=== PATIENT | male | born 1965 | race African-American/Black ===

== ENCOUNTER 2018-07-31 08:31 | Inpatient (IN) | payer MEDICAID ==
[~2018-07-31] VITALS: Ht 193 cm; Wt 83.9 kg
[2018-07-31] VITALS (12 sets, daily range): BP systolic 142–207; BP diastolic 97–154
[2018-07-31 09:44] LABS: CHLORIDE 85 mEq/L (98-107)
[2018-07-31 10:07] LABS: HEMATOCRIT. 22.9 % (42.0-52.0); HEMOGLOBIN. 7.8 g/dL (14.0-18.0); MEAN CORPUSCULAR HEMOGLOBIN 26.9 pg (28.0-32.0); MEAN CORPUSCULAR VOLUME 78.8 fL (80.0-94.0); MEAN PLATELET VOLUME 9.1 fl (7.4-10.4); PLATELET 51 x1000/uL (130-400); RED BLOOD CELL COUNT 2.91 mill/uL (4.7-6.1); RED CELL DISTRIBUTION WIDTH 15.9 % (11.6-14.6)
[2018-07-31] MEDS ORDERED: ALBUTEROL (0.083%) 2.5MG/3ML NEB HHN ONE (10:15)
[2018-07-31] MEDS ORDERED: CALCIUM CHLORIDE 1GM/10ML SYR IV ONE ×2 (10:15→20:00)
[2018-07-31] MEDS ORDERED: INSULIN REGULAR (HUMULIN R) 300UNITS/3ML IV ONE (10:15)
[2018-07-31] MEDS ORDERED: SODIUM BICARBONATE 8.4% 1 MEQ/ML 50ML SYR IV ONE (10:15)
[2018-07-31] MEDS ORDERED: DEXTROSE 50% WATER 50ML SYRINGE IV ONE ×2 (10:15→20:00)
[2018-07-31] MEDS ORDERED: ENOXAPARIN 80MG/0.8ML SYR SUBCUT ONE (10:15)
[2018-07-31 10:42] LABS: PLATELET ESTIMATE DECREASED
[2018-07-31] MEDS ORDERED: MAGNESIUM/ALUMINUM HYDROXIDE/SIMETHICONE 30ML UDC PO PRN (11:30)
[2018-07-31] MEDS ORDERED: DIPHENHYDRAMINE 50MG/ML VIAL IV PRN (11:30)
[2018-07-31] MEDS ORDERED: NITROGLYCERIN 0.4MG TABLET SL SL PRN (11:30)
[2018-07-31] MEDS ORDERED: CLONIDINE 0.1MG TABLET PO PRN ×2 (11:30→14:30)
[2018-07-31] MEDS ORDERED: ACETAMINOPHEN 325MG TABLET PO PRN (11:30)
[2018-07-31] MEDS ORDERED: DOCUSATE SODIUM 100MG CAPSULE PO PRN (11:30)
[2018-07-31] MEDS ORDERED: TRAMADOL 50MG TABLET PO PRN (11:30)
[2018-07-31] MEDS ORDERED: GUAIFENESIN 200MG/10ML SUGAR FREE UDC PO PRN (11:30)
[2018-07-31] MEDS ORDERED: ONDANSETRON HCL 4MG/2ML INJ IV PRN (11:30)
[2018-07-31] MEDS ORDERED: ENOXAPARIN 40MG/0.4ML SYR SUBCUT SCH (11:30)
[2018-07-31] MEDS ORDERED: ZOLPIDEM TARTRATE 5MG TABLET PO PRN (11:30)
[2018-07-31] MEDS ORDERED: IPRATROPIUM/ALBUTEROL 0.5-3(2.5)MG/3ML NEB INH PRN (11:30)
[2018-07-31] MEDS ORDERED: DEXTROSE 50% WATER 50ML SYRINGE IV PRN (11:30)
[2018-07-31] MEDS: BLOOD SUGAR DIAGNOSTIC STRIP TEST SCH ×3 (12:40→21:39)
[2018-07-31] MEDS: SEVELAMER CARBONATE 800 MG TABLET PO SCH ×2 (12:40→17:35)
[2018-07-31] MEDS: INSULIN LISPRO 100 UNITS/ML SUBCUT SCH ×3 (12:40→21:00)
[2018-07-31] MEDS ORDERED: ENOXAPARIN 100MG/ML SYR SUBCUT SCH (14:00)
[2018-07-31] MEDS: AMLODIPINE 5MG TABLET PO SCH ×2 (14:30→21:00)
[2018-07-31] MEDS: HYDRALAZINE 20MG/ML VIAL IV PRN ×2 (14:46→23:47)
[2018-07-31] MEDS: FAMOTIDINE 20MG TABLET PO SCH ×2 (14:49→17:35)
[2018-07-31 16:26] LABS: CREATINE KINASE MB FRACTION 17.1 ng/mL (0.5-3.6)
[2018-07-31] MEDS ORDERED: SODIUM POLYSTYRENE SULFONATE 15 G/60 ML BOT PO NR (16:30)
[2018-07-31 16:53] LABS: HEPATITIS B SURFACE ANTIGEN NEGATIVE
[2018-07-31 17:23] LABS: HEPATITIS A AB IGM NEGATIVE (NEGATIVE)
[2018-07-31] MEDS: NITROGLYCERIN OINT 1GM/INCH UDPKT TD SCH (17:34)
[2018-07-31] MEDS ORDERED: PIPERACILLIN/TAZ 2.25G PREMIX 50 ML IV SCH (18:30)
[2018-07-31] MEDS ORDERED: SODIUM CHLORIDE 0.9% 1000ML BAG (SEPSIS BOLUS) IV NR (18:37)
[2018-07-31] MEDS ORDERED: HEPARIN SODIUM 1,000 UNIT/1ML VIAL IV NR (18:38)
[2018-07-31] MEDS ORDERED: NOREPINEPHRINE 4 MG in DEXT 5% WATER 246 ML IV PRN (20:00)
[2018-07-31] MEDS ORDERED: SODIUM BICARBONATE 8.4% MEQ/ML 50ML VIAL IV ONE (20:00)
[2018-07-31] MEDS ORDERED: EPINEPHRINE 0.1MG/ML (1:10,000) 10ML SYR ONE (20:00)
[2018-07-31 20:04] LABS: HEMATOCRIT 21.4 % (42.0-52.0); HEMOGLOBIN 7.2 g/dL (14.0-18.0); MEAN CORPUSCULAR HEMOGLOBIN 26.2 pg (28.0-32.0); MEAN CORPUSCULAR VOLUME 78.2 fL (80.0-94.0); PLATELET 60 x1000/uL (130-400); RED BLOOD CELL COUNT 2.73 mill/uL (4.7-6.1); RED CELL DISTRIBUTION WIDTH 15.6 % (11.6-14.6)
[2018-07-31] MEDS ORDERED: NICARDIPINE 50 MG in SODIUM CHLORIDE 0.9% 230 ML IV PRN (20:30)
[2018-07-31] MEDS ORDERED: NICARDIPINE 40MG/200ML PREMIX 200 ML IV SCH (20:30)
[2018-07-31 20:37] LABS: BG BASE EXCESS -5.3 mmol/L (-2.0-2.0); BG CARBOXYHEMOGLOBIN 0.4 % (0.5-1.5); BG DEOXYHEMOGLOBIN 0.8 % (0.0-5.0); BG FRACTION INSPIRED OXYGEN 100; BG HCO3 ACT 17.9 mmol/L (22.0-26.0); BG METHEMOGLOBIN 0.6 % (0.0-1.5); BG OXYGEN SATURATION 99.2 % (92.0-98.5); BG OXYHEMOGLOBIN 98.2 % (94.0-97.0); BG PCO2 26.4 mmHg (35.0-45.0); BG PO2 473.7 mmHg (75.0-100.0); BG SAMPLE SITE RIGHT RADIAL; BG TIDAL VOLUME(mL) 550 mL; BG TOTAL HEMOGLOBIN 7.5 g/dL (12.0-18.0); BG VENT MODE VENT - A/C; BG VENT RATE 14 set
[2018-07-31] MEDS ORDERED: METOPROLOL TARTRATE 25MG TABLET PO SCH (21:00)
[2018-07-31] MEDS: CARVEDILOL 3.125 MG TABLET PO SCH (21:00)
[2018-07-31] MEDS: NITROPRUSSIDE 50 MG in SODIUM CHLORIDE 0.9% 250 ML IV PRN (21:56)
[2018-07-31] MEDS: PROPOFOL 10MG/ML 100ML 100 ML IV PRN ×2 (21:58→23:34)
[2018-07-31] MEDS ORDERED: VANCOMYCIN 2,000 MG in DEXT 5% WATER 500 ML IV NR (22:00)
[2018-07-31] MEDS: PIPERACILLIN/TAZ 2.25G PREMIX 50 ML IV SCH (22:18)
[2018-07-31 23:00] LABS: CREATINE KINASE MB FRACTION 14.9 ng/mL (0.5-3.6)
[2018-08-01] VITALS (92 sets, daily range): BP systolic 107–205; BP diastolic 54–146
[2018-08-01] MEDS: NITROGLYCERIN OINT 1GM/INCH UDPKT TD SCH ×5 (01:04→23:19)
[2018-08-01] MEDS: NITROPRUSSIDE 50 MG in SODIUM CHLORIDE 0.9% 250 ML IV PRN ×3 (02:45→07:14)
[2018-08-01] MEDS: PROPOFOL 10MG/ML 100ML 100 ML IV PRN ×2 (03:49→08:36)
[2018-08-01] MEDS: PIPERACILLIN/TAZ 2.25G PREMIX 50 ML IV SCH ×3 (04:13→20:17)
[2018-08-01 05:08] LABS: BASOPHILS % 0.1 % (0.0-2.0); EOSINOPHILS % 0.1 % (0.0-5.0); LYMPHOCYTES % 7.1 % (20.0-50.0); MEAN CORPUSCULAR HEMOGLOBIN 27.4 pg (28.0-32.0); MEAN CORPUSCULAR VOLUME 77.1 fL (80.0-94.0); MEAN PLATELET VOLUME 8.7 fl (7.4-10.4); NEUTROPHILS % 86.7 % (40.0-76.0); PLATELET 65 x1000/uL (130-400); RED BLOOD CELL COUNT 2.48 mill/uL (4.7-6.1); RED CELL DISTRIBUTION WIDTH 15.5 % (11.6-14.6)
[2018-08-01 05:13] LABS: CHLORIDE 86 mEq/L (98-107)
[2018-08-01 05:33] LABS: HEMOGLOBIN. 6.8 g/dL (14.0-18.0)
[2018-08-01 05:34] LABS: HEMATOCRIT. 19.1 % (42.0-52.0)
[2018-08-01] MEDS: BLOOD SUGAR DIAGNOSTIC STRIP TEST SCH ×4 (06:14→21:01)
[2018-08-01] MEDS: INSULIN LISPRO 100 UNITS/ML SUBCUT SCH ×4 (06:17→21:01)
[2018-08-01 06:25] LABS: PHOSPHORUS 8.6 mg/dL (2.5-4.9)
[2018-08-01] MEDS: SEVELAMER CARBONATE 800 MG TABLET PO SCH (07:00)
[2018-08-01] MEDS: HYDRALAZINE 20MG/ML VIAL IV PRN ×3 (07:04→21:06)
[2018-08-01 07:37] LABS: BG BASE EXCESS 1.2 mmol/L (-2.0-2.0); BG CARBOXYHEMOGLOBIN 0.8 % (0.5-1.5); BG DEOXYHEMOGLOBIN 0.9 % (0.0-5.0); BG HCO3 ACT 23.9 mmol/L (22.0-26.0); BG METHEMOGLOBIN 0.2 % (0.0-1.5); BG OXYGEN SATURATION 99.1 % (92.0-98.5); BG OXYHEMOGLOBIN 98.1 % (94.0-97.0); BG PCO2 29.1 mmHg (35.0-45.0); BG PH 7.532 (7.350-7.450); BG SAMPLE SITE RIGHT RADIAL; BG TIDAL VOLUME(mL) 550 mL; BG TOTAL HEMOGLOBIN 6.5 g/dL (12.0-18.0); BG VENT MODE VENT - A/C; BG VENT RATE 14 set
[2018-08-01] MEDS ORDERED: ASPIRIN 325MG EC TABLET PO SCH (09:00)
[2018-08-01] MEDS: FOLIC ACID/VITAMIN B COMP W-C TABLET PO SCH (09:00)
[2018-08-01] MEDS: AMLODIPINE 5MG TABLET PO SCH ×2 (09:00→21:00)
[2018-08-01] MEDS ORDERED: FAMOTIDINE 20MG/2ML VIAL IV SCH (09:00)
[2018-08-01] MEDS: CARVEDILOL 3.125 MG TABLET PO SCH ×2 (09:00→21:00)
[2018-08-01] MEDS ORDERED: LIDOCAINE HCL 1% 20ML VIAL (Pyxis) INJ ONE (09:25)
[2018-08-01] MEDS ORDERED: SODIUM BICARBONATE 4% (2.4MEQ) 5ML VIAL IV ONE (09:26)
[2018-08-01] MEDS ORDERED: HEPARIN SODIUM 1,000 UNIT/1ML VIAL IV NR (10:45)
[2018-08-01] MEDS ORDERED: CLONIDINE HCL 0.2MG/24HR PATCH TD SCH (11:00)
[2018-08-01 11:16] LABS: *AMPHETAMINES SCREEN URINE NEGATIVE (NEGATIVE)
[2018-08-01 11:17] LABS: *BARBITURATES SCREEN URINE NEGATIVE (NEGATIVE); *BENZODIAZEPINES SCREEN URINE NEGATIVE (NEGATIVE); *COCAINE SCREEN URINE NEGATIVE (NEGATIVE); METHADONE URINE SCREEN NEGATIVE (NEGATIVE); OPIATES URINE SCREEN NEGATIVE (NEGATIVE); PHENCYCLIDINE URINE SCREEN NEGATIVE (NEGATIVE)
[2018-08-01 11:29] LABS: CANNABINOID URINE SCREEN NEGATIVE (NEGATIVE)
[2018-08-01] MEDS: MIDAZOLAM HCL 50 MG in DEXTROSE 5% WATER 40 ML IV PRN ×2 (11:49→18:14)
[2018-08-01] MEDS: PANTOPRAZOLE SODIUM 40 MG/VIAL IV SCH ×2 (13:21→21:01)
[2018-08-01] MEDS: IPRATROPIUM/ALBUTEROL 0.5-3(2.5)MG/3ML NEB HHN SCH ×2 (13:55→20:24)
[2018-08-01] MEDS ORDERED: IOHEXOL-350 100 ML BOTTLE ONE (16:12)
[2018-08-01] MEDS: NITROGLYCERIN 50MG PREMIX 250 ML IV PRN ×2 (18:13→23:20)
[2018-08-01 20:55] LABS: HEMATOCRIT 28.2 % (42.0-52.0); HEMOGLOBIN 9.9 g/dL (14.0-18.0)
[2018-08-01] MEDS: EPOETIN ALFA 10000UNITS/ML VIAL SUBCUT SCH (21:01)
[2018-08-02] VITALS (96 sets, daily range): BP systolic 144–182; BP diastolic 81–131
[2018-08-02] MEDS: IPRATROPIUM/ALBUTEROL 0.5-3(2.5)MG/3ML NEB HHN SCH ×4 (01:51→20:17)
[2018-08-02] MEDS: HYDRALAZINE 20MG/ML VIAL IV PRN ×3 (02:36→16:46)
[2018-08-02] MEDS: MIDAZOLAM HCL 50 MG in DEXTROSE 5% WATER 40 ML IV PRN (03:01)
[2018-08-02] MEDS: PIPERACILLIN/TAZ 2.25G PREMIX 50 ML IV SCH (03:04)
[2018-08-02] MEDS: NITROGLYCERIN 50MG PREMIX 250 ML IV PRN ×5 (03:43→21:04)
[2018-08-02 04:45] LABS: HEMATOCRIT. 29.3 % (42.0-52.0); HEMOGLOBIN. 9.9 g/dL (14.0-18.0); MEAN CORPUSCULAR HEMOGLOBIN 27.1 pg (28.0-32.0); MEAN CORPUSCULAR VOLUME 79.7 fL (80.0-94.0); MEAN PLATELET VOLUME 8.5 fl (7.4-10.4); PLATELET 73 x1000/uL (130-400); RED BLOOD CELL COUNT 3.68 mill/uL (4.7-6.1); RED CELL DISTRIBUTION WIDTH 16.2 % (11.6-14.6)
[2018-08-02 04:50] LABS: INR 1.4; PARTIAL THROMBOPLASTIN TIME 31.9 sec (23.4-31.0); PROTHROMBIN TIME 14.7 sec (9.6-11.0)
[2018-08-02] MEDS: NITROGLYCERIN OINT 1GM/INCH UDPKT TD SCH ×4 (05:06→23:25)
[2018-08-02 05:10] LABS: CHLORIDE 90 mEq/L (98-107)
[2018-08-02 05:24] LABS: CREATINE KINASE 883 IU/L (39-308)
[2018-08-02 05:27] LABS: CREATINE KINASE MB FRACTION 5.3 ng/mL (0.5-3.6)
[2018-08-02] MEDS: BLOOD SUGAR DIAGNOSTIC STRIP TEST SCH ×4 (05:41→20:44)
[2018-08-02 06:09] LABS: HIV SCREEN 4G Non Reactive (Non Reactive)
[2018-08-02] MEDS: INSULIN LISPRO 100 UNITS/ML SUBCUT SCH ×4 (06:17→20:44)
[2018-08-02 08:28] LABS: BG BASE EXCESS 2.7 mmol/L (-2.0-2.0); BG CARBOXYHEMOGLOBIN 0.2 % (0.5-1.5); BG DEOXYHEMOGLOBIN 1.6 % (0.0-5.0); BG FRACTION INSPIRED OXYGEN 40; BG HCO3 ACT 27.3 mmol/L (22.0-26.0); BG METHEMOGLOBIN 0.8 % (0.0-1.5); BG OXYGEN SATURATION 98.4 % (92.0-98.5); BG OXYHEMOGLOBIN 97.4 % (94.0-97.0); BG PH 7.431 (7.350-7.450); BG PO2 153.1 mmHg (75.0-100.0); BG SAMPLE SITE RIGHT RADIAL; BG TIDAL VOLUME(mL) 500 mL; BG TOTAL HEMOGLOBIN 10.6 g/dL (12.0-18.0); BG VENT MODE VENT - A/C; BG VENT RATE 12 set
[2018-08-02 08:37] LABS: NUCLEATED RED BLOOD CELLS 3 /100 WBC; PLATELET ESTIMATE DECREASED
[2018-08-02] MEDS: AMLODIPINE 5MG TABLET PO SCH ×2 (09:00→20:43)
[2018-08-02] MEDS: CARVEDILOL 3.125 MG TABLET PO SCH ×2 (09:00→20:43)
[2018-08-02] MEDS ORDERED: VANCOMYCIN 1500MG in DEXTROSE 5% WATER 250ML IV NR (09:00)
[2018-08-02] MEDS: FOLIC ACID/VITAMIN B COMP W-C TABLET PO SCH (09:00)
[2018-08-02] MEDS: PANTOPRAZOLE SODIUM 40 MG/VIAL IV SCH ×2 (09:04→20:43)
[2018-08-02] MEDS ORDERED: CEFEPIME 1,000 MG in DEXTROSE 5% WATER 50 ML IV SCH (11:30)
[2018-08-02] MEDS: METRONIDAZOLE 500 MG PREMIX 100 ML IV SCH ×2 (12:11→20:43)
[2018-08-02] MEDS: LABETALOL 5MG/ML SYR 20 MG/4 ML SYRINGE IV PRN ×2 (13:44→18:39)
[2018-08-02] MEDS: FENTANYL CITRATE/PF 500 MCG in SODIUM CHLORIDE 0.9% 40 ML IV PRN ×2 (13:45→20:19)
[2018-08-02 14:05] LABS: TOTAL IRON BINDING CAPACITY 213 ug/dL (250-450)
[2018-08-02] MEDS ORDERED: CLONIDINE HCL 0.3MG/24HR PATCH TOP SCH (14:30)
[2018-08-03] VITALS (96 sets, daily range): BP systolic 124–165; BP diastolic 69–111
[2018-08-03] MEDS: NITROGLYCERIN 50MG PREMIX 250 ML IV PRN ×2 (01:32→06:08)
[2018-08-03] MEDS: IPRATROPIUM/ALBUTEROL 0.5-3(2.5)MG/3ML NEB HHN SCH ×4 (01:50→20:41)
[2018-08-03 04:28] LABS: HEMATOCRIT. 26.4 % (42.0-52.0); MEAN CORPUSCULAR HEMOGLOBIN 27.5 pg (28.0-32.0); MEAN CORPUSCULAR VOLUME 80.3 fL (80.0-94.0); MEAN PLATELET VOLUME 8.4 fl (7.4-10.4); PLATELET 72 x1000/uL (130-400); RED BLOOD CELL COUNT 3.29 mill/uL (4.7-6.1)
[2018-08-03] MEDS: LABETALOL 5MG/ML SYR 20 MG/4 ML SYRINGE IV PRN (04:37)
[2018-08-03 04:38] LABS: INR 1.1; PARTIAL THROMBOPLASTIN TIME 31.8 sec (23.4-31.0); PROTHROMBIN TIME 11.7 sec (9.6-11.0)
[2018-08-03 04:57] LABS: PHOSPHORUS 10.5 mg/dL (2.5-4.9)
[2018-08-03] MEDS: NITROGLYCERIN OINT 1GM/INCH UDPKT TD SCH ×4 (05:21→23:15)
[2018-08-03] MEDS: FENTANYL CITRATE/PF 500 MCG in SODIUM CHLORIDE 0.9% 40 ML IV PRN ×3 (06:09→17:55)
[2018-08-03] MEDS: BLOOD SUGAR DIAGNOSTIC STRIP TEST SCH ×4 (06:15→20:41)
[2018-08-03] MEDS: INSULIN LISPRO 100 UNITS/ML SUBCUT SCH ×4 (06:15→20:41)
[2018-08-03 08:09] LABS: BG DEOXYHEMOGLOBIN 8.7 % (0.0-5.0); BG FRACTION INSPIRED OXYGEN 40; BG HCO3 ACT 26.4 mmol/L (22.0-26.0); BG METHEMOGLOBIN 0.7 % (0.0-1.5); BG OXYGEN SATURATION 91.1 % (92.0-98.5); BG OXYHEMOGLOBIN 89.6 % (94.0-97.0); BG PCO2 45.7 mmHg (35.0-45.0); BG PO2 65.6 mmHg (75.0-100.0); BG SAMPLE SITE RIGHT RADIAL; BG TIDAL VOLUME(mL) 500 mL; BG TOTAL HEMOGLOBIN 11.2 g/dL (12.0-18.0); BG VENT MODE VENT - A/C; BG VENT RATE 12 set
[2018-08-03] MEDS: SEVELAMER CARBONATE 800 MG TABLET PO SCH ×3 (08:15→17:00)
[2018-08-03] MEDS: CARVEDILOL 3.125 MG TABLET PO SCH ×2 (09:00→20:40)
[2018-08-03] MEDS: AMLODIPINE 5MG TABLET PO SCH (09:00)
[2018-08-03] MEDS: FOLIC ACID/VITAMIN B COMP W-C TABLET PO SCH (09:00)
[2018-08-03 09:29] LABS: NUCLEATED RED BLOOD CELLS 2 /100 WBC
[2018-08-03 09:30] LABS: PLATELET ESTIMATE SLIGHTLY DECREASED
[2018-08-03] MEDS ORDERED: HEPARIN SODIUM 1,000 UNIT/1ML VIAL IV SCH (10:00)
[2018-08-03] MEDS: LORAZEPAM 2MG/ML CPJ IV PRN ×2 (11:33→20:39)
[2018-08-03] MEDS: PANTOPRAZOLE SODIUM 40 MG/VIAL IV SCH ×2 (11:33→20:39)
[2018-08-03] MEDS: METRONIDAZOLE 500 MG PREMIX 100 ML IV SCH ×2 (11:34→20:39)
[2018-08-03 11:36] LABS: HEMATOCRIT. 29.8 % (42.0-52.0); HEMOGLOBIN. 9.9 g/dL (14.0-18.0); MEAN CORPUSCULAR HEMOGLOBIN 26.9 pg (28.0-32.0); MEAN CORPUSCULAR VOLUME 80.7 fL (80.0-94.0); MEAN PLATELET VOLUME 8.8 fl (7.4-10.4); PLATELET 79 x1000/uL (130-400); RED BLOOD CELL COUNT 3.69 mill/uL (4.7-6.1); RED CELL DISTRIBUTION WIDTH 16.4 % (11.6-14.6)
[2018-08-03 12:00] LABS: NUCLEATED RED BLOOD CELLS 2 /100 WBC; PLATELET ESTIMATE DECREASED
[2018-08-03] MEDS: CEFEPIME 500 MG in DEXTROSE 5% WATER 50 ML IV SCH (13:28)
[2018-08-03] MEDS: CLONIDINE 0.1MG TABLET PO SCH ×2 (15:07→23:15)
[2018-08-03] MEDS: HYDRALAZINE HCL 50MG TABLET PO SCH ×2 (15:07→21:19)
[2018-08-03] MEDS ORDERED: NITROGLYCERIN OINT 1GM/INCH UDPKT TD SCH (18:00)
[2018-08-03] MEDS: AMLODIPINE 10MG TABLET PO SCH (20:40)
[2018-08-03] MEDS: EPOETIN ALFA 10000UNITS/ML VIAL SUBCUT SCH (21:19)
[2018-08-04] VITALS (96 sets, daily range): BP systolic 133–167; BP diastolic 75–117
[2018-08-04] MEDS: FENTANYL CITRATE/PF 500 MCG in SODIUM CHLORIDE 0.9% 40 ML IV PRN ×2 (01:24→09:08)
[2018-08-04] MEDS: IPRATROPIUM/ALBUTEROL 0.5-3(2.5)MG/3ML NEB HHN SCH ×4 (02:29→20:30)
[2018-08-04 05:11] LABS: CHLORIDE 92 mEq/L (98-107)
[2018-08-04 05:14] LABS: HEMATOCRIT. 26.2 % (42.0-52.0); HEMOGLOBIN. 8.6 g/dL (14.0-18.0); MEAN CORPUSCULAR HEMOGLOBIN 27.2 pg (28.0-32.0); MEAN CORPUSCULAR VOLUME 82.5 fL (80.0-94.0); MEAN PLATELET VOLUME 8.6 fl (7.4-10.4); PLATELET 78 x1000/uL (130-400); RED BLOOD CELL COUNT 3.17 mill/uL (4.7-6.1); RED CELL DISTRIBUTION WIDTH 16.3 % (11.6-14.6)
[2018-08-04 05:19] LABS: PARTIAL THROMBOPLASTIN TIME 34.7 sec (23.4-31.0); PROTHROMBIN TIME 10.8 sec (9.6-11.0)
[2018-08-04] MEDS: HYDRALAZINE HCL 50MG TABLET PO SCH (05:36)
[2018-08-04] MEDS: NITROGLYCERIN OINT 1GM/INCH UDPKT TD SCH ×3 (05:37→19:08)
[2018-08-04] MEDS: BLOOD SUGAR DIAGNOSTIC STRIP TEST SCH ×4 (05:37→21:43)
[2018-08-04 06:01] LABS: PHOSPHORUS 9.2 mg/dL (2.5-4.9)
[2018-08-04] MEDS: SEVELAMER CARBONATE 800 MG TABLET PO SCH ×3 (06:07→17:00)
[2018-08-04] MEDS: INSULIN LISPRO 100 UNITS/ML SUBCUT SCH ×4 (06:07→21:00)
[2018-08-04 07:46] LABS: BG BASE EXCESS -3.2 mmol/L (-2.0-2.0); BG CARBOXYHEMOGLOBIN 0.4 % (0.5-1.5); BG DEOXYHEMOGLOBIN 1.6 % (0.0-5.0); BG FRACTION INSPIRED OXYGEN 50; BG HCO3 ACT 22.7 mmol/L (22.0-26.0); BG METHEMOGLOBIN 0.7 % (0.0-1.5); BG OXYGEN SATURATION 98.4 % (92.0-98.5); BG OXYHEMOGLOBIN 97.3 % (94.0-97.0); BG PCO2 44.6 mmHg (35.0-45.0); BG PH 7.325 (7.350-7.450); BG PO2 145.4 mmHg (75.0-100.0); BG SAMPLE SITE RIGHT RADIAL; BG TIDAL VOLUME(mL) 500 mL; BG TOTAL HEMOGLOBIN 9.2 g/dL (12.0-18.0); BG VENT MODE VENT - A/C; BG VENT RATE 14 set
[2018-08-04 08:08] LABS: CREATINE KINASE 323 IU/L (39-308)
[2018-08-04 08:09] LABS: NUCLEATED RED BLOOD CELLS 2 /100 WBC; PLATELET ESTIMATE DECREASED
[2018-08-04] MEDS ORDERED: HEPARIN SODIUM 1,000 UNIT/1ML VIAL IV NR (09:45)
[2018-08-04] MEDS: METRONIDAZOLE 500 MG PREMIX 100 ML IV SCH ×2 (11:28→21:13)
[2018-08-04] MEDS: AMLODIPINE 10MG TABLET PO SCH ×2 (11:28→21:15)
[2018-08-04] MEDS: FOLIC ACID/VITAMIN B COMP W-C TABLET PO SCH (11:29)
[2018-08-04] MEDS: CARVEDILOL 3.125 MG TABLET PO SCH ×2 (11:29→21:00)
[2018-08-04] MEDS: PANTOPRAZOLE SODIUM 40 MG/VIAL IV SCH ×2 (11:46→21:13)
[2018-08-04 14:02] LABS: BG BASE EXCESS -0.7 mmol/L (-2.0-2.0); BG CARBOXYHEMOGLOBIN 0.3 % (0.5-1.5); BG DEOXYHEMOGLOBIN 2.5 % (0.0-5.0); BG FRACTION INSPIRED OXYGEN 40; BG HCO3 ACT 25.4 mmol/L (22.0-26.0); BG METHEMOGLOBIN 0.1 % (0.0-1.5); BG OXYGEN SATURATION 97.5 % (92.0-98.5); BG OXYHEMOGLOBIN 97.1 % (94.0-97.0); BG PCO2 48.2 mmHg (35.0-45.0); BG PH 7.339 (7.350-7.450); BG PO2 110.4 mmHg (75.0-100.0); BG PRESSURE SUPPORT 8; BG SAMPLE SITE RIGHT RADIAL; BG TOTAL HEMOGLOBIN 9.9 g/dL (12.0-18.0); BG VENT MODE VENT - CPAP
[2018-08-04] MEDS ORDERED: RACEPINEPHRINE 2.25% 0.5ML NEB VIAL HHN PRN (14:45)
[2018-08-04] MEDS: HYDRALAZINE 20MG/ML VIAL IV PRN ×2 (15:05→19:08)
[2018-08-04] MEDS: CEFEPIME 500 MG in DEXTROSE 5% WATER 50 ML IV SCH (15:06)
[2018-08-04] MEDS: CLONIDINE 0.1MG TABLET PO SCH ×2 (15:06→21:14)
[2018-08-04] MEDS: MINOXIDIL 2.5MG TABLET PO SCH (21:16)
[2018-08-05] VITALS (50 sets, daily range): BP systolic 139–168; BP diastolic 81–109
[2018-08-05] MEDS: NITROGLYCERIN OINT 1GM/INCH UDPKT TD SCH ×5 (01:09→23:53)
[2018-08-05] MEDS: IPRATROPIUM/ALBUTEROL 0.5-3(2.5)MG/3ML NEB HHN SCH ×4 (02:25→20:20)
[2018-08-05 05:53] LABS: HEMATOCRIT. 26.4 % (42.0-52.0); HEMOGLOBIN. 8.9 g/dL (14.0-18.0); MEAN CORPUSCULAR HEMOGLOBIN 27.8 pg (28.0-32.0); MEAN CORPUSCULAR VOLUME 82.9 fL (80.0-94.0); MEAN PLATELET VOLUME 8.4 fl (7.4-10.4); PLATELET 82 x1000/uL (130-400); RED BLOOD CELL COUNT 3.19 mill/uL (4.7-6.1); RED CELL DISTRIBUTION WIDTH 16.2 % (11.6-14.6)
[2018-08-05 05:59] LABS: CHLORIDE 96 mEq/L (98-107)
[2018-08-05] MEDS: INSULIN LISPRO 100 UNITS/ML SUBCUT SCH ×4 (06:08→21:00)
[2018-08-05] MEDS: BLOOD SUGAR DIAGNOSTIC STRIP TEST SCH ×4 (06:08→21:02)
[2018-08-05 06:09] LABS: CREATINE KINASE 215 IU/L (39-308)
[2018-08-05] MEDS: SEVELAMER CARBONATE 800 MG TABLET PO SCH ×3 (06:09→16:19)
[2018-08-05 07:01] LABS: PARTIAL THROMBOPLASTIN TIME 34.1 sec (23.4-31.0); PROTHROMBIN TIME 10.7 sec (9.6-11.0)
[2018-08-05] MEDS: PANTOPRAZOLE SODIUM 40 MG/VIAL IV SCH ×2 (09:05→20:11)
[2018-08-05] MEDS: CLONIDINE 0.1MG TABLET PO SCH (09:06)
[2018-08-05] MEDS: MINOXIDIL 2.5MG TABLET PO SCH ×2 (09:07→21:03)
[2018-08-05] MEDS: AMLODIPINE 10MG TABLET PO SCH ×2 (09:08→21:03)
[2018-08-05] MEDS: CARVEDILOL 3.125 MG TABLET PO SCH (09:08)
[2018-08-05] MEDS: METRONIDAZOLE 500 MG PREMIX 100 ML IV SCH ×2 (09:08→20:11)
[2018-08-05] MEDS: FOLIC ACID/VITAMIN B COMP W-C TABLET PO SCH (09:26)
[2018-08-05 11:19] LABS: PLATELET ESTIMATE DECREASED
[2018-08-05] MEDS: CEFEPIME 500 MG in DEXTROSE 5% WATER 50 ML IV SCH (13:06)
[2018-08-05] MEDS: CARVEDILOL 6.25 MG TABLET PO SCH (20:11)
[2018-08-05] MEDS: CLONIDINE 0.2MG TABLET PO SCH (20:12)
[2018-08-05] MEDS ORDERED: EPOETIN ALFA 10000UNITS/ML VIAL SUBCUT SCH (21:00)
[2018-08-06] VITALS (52 sets, daily range): BP systolic 120–159; BP diastolic 63–105
[2018-08-06] MEDS: IPRATROPIUM/ALBUTEROL 0.5-3(2.5)MG/3ML NEB HHN SCH ×4 (01:40→20:32)
[2018-08-06 05:39] LABS: HEMATOCRIT. 27.3 % (42.0-52.0); HEMOGLOBIN. 9.1 g/dL (14.0-18.0); MEAN CORPUSCULAR HEMOGLOBIN 27.6 pg (28.0-32.0); MEAN CORPUSCULAR VOLUME 82.7 fL (80.0-94.0); MEAN PLATELET VOLUME 8.3 fl (7.4-10.4); PLATELET 92 x1000/uL (130-400); RED CELL DISTRIBUTION WIDTH 16.1 % (11.6-14.6)
[2018-08-06 05:54] LABS: INR 1.1; PARTIAL THROMBOPLASTIN TIME 32.9 sec (23.4-31.0); PROTHROMBIN TIME 11.2 sec (9.6-11.0)
[2018-08-06] MEDS: BLOOD SUGAR DIAGNOSTIC STRIP TEST SCH ×4 (06:13→20:20)
[2018-08-06] MEDS: NITROGLYCERIN OINT 1GM/INCH UDPKT TD SCH ×4 (06:13→23:31)
[2018-08-06 06:17] LABS: PHOSPHORUS 9.7 mg/dL (2.5-4.9)
[2018-08-06] MEDS: SEVELAMER CARBONATE 800 MG TABLET PO SCH ×3 (06:20→17:00)
[2018-08-06] MEDS: INSULIN LISPRO 100 UNITS/ML SUBCUT SCH ×4 (06:20→20:20)
[2018-08-06 08:51] LABS: PLATELET ESTIMATE DECREASED
[2018-08-06] MEDS: CLONIDINE 0.2MG TABLET PO SCH ×2 (09:00→20:20)
[2018-08-06] MEDS ORDERED: HEPARIN SODIUM 1,000 UNIT/1ML VIAL IV NR (10:45)
[2018-08-06] MEDS: FOLIC ACID/VITAMIN B COMP W-C TABLET PO SCH (11:13)
[2018-08-06] MEDS: PANTOPRAZOLE SODIUM 40 MG/VIAL IV SCH ×2 (11:13→20:18)
[2018-08-06] MEDS: CARVEDILOL 6.25 MG TABLET PO SCH ×2 (12:27→20:19)
[2018-08-06] MEDS: AMLODIPINE 10MG TABLET PO SCH ×2 (12:32→20:20)
[2018-08-06] MEDS: METRONIDAZOLE 500 MG PREMIX 100 ML IV SCH ×2 (12:34→20:18)
[2018-08-06] MEDS: CEFEPIME 500 MG in DEXTROSE 5% WATER 50 ML IV SCH (14:01)
[2018-08-06] MEDS ORDERED: MINOXIDIL 2.5MG TABLET PO SCH (21:00)
[2018-08-07] VITALS (27 sets, daily range): BP systolic 110–149; BP diastolic 56–100
[2018-08-07] MEDS: IPRATROPIUM/ALBUTEROL 0.5-3(2.5)MG/3ML NEB HHN SCH ×3 (02:15→14:35)
[2018-08-07 05:30] LABS: HEMATOCRIT. 28.4 % (42.0-52.0); HEMOGLOBIN. 9.7 g/dL (14.0-18.0); MEAN CORPUSCULAR HEMOGLOBIN 28.1 pg (28.0-32.0); MEAN CORPUSCULAR VOLUME 82.5 fL (80.0-94.0); MEAN PLATELET VOLUME 8.3 fl (7.4-10.4); PLATELET 94 x1000/uL (130-400); RED BLOOD CELL COUNT 3.44 mill/uL (4.7-6.1); RED CELL DISTRIBUTION WIDTH 16.9 % (11.6-14.6)
[2018-08-07 05:42] LABS: CHLORIDE 95 mEq/L (98-107)
[2018-08-07] MEDS: BLOOD SUGAR DIAGNOSTIC STRIP TEST SCH ×4 (05:46→20:33)
[2018-08-07] MEDS: NITROGLYCERIN OINT 1GM/INCH UDPKT TD SCH ×3 (05:47→17:41)
[2018-08-07] MEDS: SEVELAMER CARBONATE 800 MG TABLET PO SCH (06:11)
[2018-08-07] MEDS: INSULIN LISPRO 100 UNITS/ML SUBCUT SCH ×4 (06:11→20:34)
[2018-08-07] MEDS: PANTOPRAZOLE SODIUM 40 MG/VIAL IV SCH ×2 (08:15→20:44)
[2018-08-07] MEDS: AMLODIPINE 10MG TABLET PO SCH (08:16)
[2018-08-07] MEDS: METRONIDAZOLE 500 MG PREMIX 100 ML IV SCH ×2 (08:16→20:43)
[2018-08-07] MEDS: CLONIDINE 0.2MG TABLET PO SCH (08:17)
[2018-08-07] MEDS: FOLIC ACID/VITAMIN B COMP W-C TABLET PO SCH (08:17)
[2018-08-07] MEDS: CARVEDILOL 6.25 MG TABLET PO SCH (08:17)
[2018-08-07] MEDS: ENALAPRIL 1.25MG/ML VIAL 1ML IV SCH ×2 (12:00→18:09)
[2018-08-07] MEDS: CLONIDINE HCL 0.3MG/24HR PATCH TOP SCH ×2 (13:00→17:42)
[2018-08-07 14:56] LABS: NUCLEATED RED BLOOD CELLS 1 /100 WBC
[2018-08-07 14:57] LABS: PLATELET ESTIMATE SLIGHTLY DECREASED
[2018-08-07] MEDS: CEFEPIME 500 MG in DEXTROSE 5% WATER 50 ML IV SCH (15:30)
[2018-08-08] VITALS (48 sets, daily range): BP systolic 108–163; BP diastolic 51–128
[2018-08-08] MEDS: ENALAPRIL 1.25MG/ML VIAL 1ML IV SCH ×4 (00:17→18:38)
[2018-08-08] MEDS: NITROGLYCERIN OINT 1GM/INCH UDPKT TD SCH ×4 (00:17→18:43)
[2018-08-08] MEDS: IPRATROPIUM/ALBUTEROL 0.5-3(2.5)MG/3ML NEB HHN SCH ×4 (01:24→20:18)
[2018-08-08] MEDS: BLOOD SUGAR DIAGNOSTIC STRIP TEST SCH ×4 (05:40→21:00)
[2018-08-08 05:50] LABS: CHLORIDE 93 mEq/L (98-107); HEMATOCRIT. 28.9 % (42.0-52.0); HEMOGLOBIN. 9.7 g/dL (14.0-18.0); MEAN CORPUSCULAR VOLUME 83.3 fL (80.0-94.0); MEAN PLATELET VOLUME 8.5 fl (7.4-10.4); PLATELET 106 x1000/uL (130-400); RED BLOOD CELL COUNT 3.47 mill/uL (4.7-6.1); RED CELL DISTRIBUTION WIDTH 16.8 % (11.6-14.6)
[2018-08-08] MEDS: INSULIN LISPRO 100 UNITS/ML SUBCUT SCH ×4 (06:03→21:00)
[2018-08-08 06:31] LABS: PHOSPHORUS 9.4 mg/dL (2.5-4.9)
[2018-08-08] MEDS: DEXT 5%/0.9% NACL 1,000 ML IV SCH (08:35)
[2018-08-08] MEDS: PANTOPRAZOLE SODIUM 40 MG/VIAL IV SCH ×2 (08:35→23:19)
[2018-08-08] MEDS: METRONIDAZOLE 500 MG PREMIX 100 ML IV SCH ×2 (08:35→23:19)
[2018-08-08 08:45] LABS: AMYLASE 140 IU/L (25-115)
[2018-08-08] MEDS ORDERED: CLONIDINE HCL 0.2MG/24HR PATCH TD SCH (09:00)
[2018-08-08 12:31] LABS: NUCLEATED RED BLOOD CELLS 1 /100 WBC; PLATELET ESTIMATE SLIGHTLY DECREASED
[2018-08-08] MEDS: CEFEPIME 500 MG in DEXTROSE 5% WATER 50 ML IV SCH (13:38)
[2018-08-08] MEDS ORDERED: IOHEXOL-300 100 ML BOTTLE ONE (16:15)
[2018-08-08] MEDS ORDERED: HEPARIN SODIUM 1,000 UNIT/1ML VIAL IV NR (17:15)
[2018-08-09] VITALS (32 sets, daily range): BP systolic 98–154; BP diastolic 48–96
[2018-08-09] MEDS: IPRATROPIUM/ALBUTEROL 0.5-3(2.5)MG/3ML NEB HHN SCH ×4 (02:21→21:39)
[2018-08-09 05:51] LABS: HEMATOCRIT. 30.5 % (42.0-52.0); HEMOGLOBIN. 10.3 g/dL (14.0-18.0); MEAN CORPUSCULAR VOLUME 82.6 fL (80.0-94.0); MEAN PLATELET VOLUME 8.5 fl (7.4-10.4); PLATELET 117 x1000/uL (130-400); RED BLOOD CELL COUNT 3.69 mill/uL (4.7-6.1); RED CELL DISTRIBUTION WIDTH 17.4 % (11.6-14.6)
[2018-08-09] MEDS: NITROGLYCERIN OINT 1GM/INCH UDPKT TD SCH ×2 (06:00)
[2018-08-09 06:09] LABS: CHLORIDE 96 mEq/L (98-107)
[2018-08-09 06:19] LABS: PHOSPHORUS 7.7 mg/dL (2.5-4.9)
[2018-08-09] MEDS: INSULIN LISPRO 100 UNITS/ML SUBCUT SCH ×4 (07:00→21:00)
[2018-08-09] MEDS: ENALAPRIL 1.25MG/ML VIAL 1ML IV SCH ×4 (07:01→18:00)
[2018-08-09] MEDS: BLOOD SUGAR DIAGNOSTIC STRIP TEST SCH ×4 (07:02→21:11)
[2018-08-09] MEDS: METRONIDAZOLE 500 MG PREMIX 100 ML IV SCH (08:59)
[2018-08-09] MEDS: PANTOPRAZOLE SODIUM 40 MG/VIAL IV SCH ×2 (08:59→21:23)
[2018-08-09] MEDS: DEXT 5%/0.9% NACL 1,000 ML IV SCH (09:00)
[2018-08-09 13:05] LABS: PLATELET ESTIMATE DECREASED
[2018-08-09] MEDS: CLONIDINE 0.2MG TABLET PO SCH ×2 (14:00→20:49)
[2018-08-09] MEDS: AMLODIPINE 5MG TABLET PO SCH ×2 (14:00→20:48)
[2018-08-09] MEDS: CEFEPIME 500 MG in DEXTROSE 5% WATER 50 ML IV SCH (17:44)
[2018-08-09] MEDS: CARVEDILOL 6.25 MG TABLET PO SCH (20:48)
[2018-08-10] VITALS (12 sets, daily range): BP systolic 107–140; BP diastolic 61–97
[2018-08-10] MEDS: ENALAPRIL 1.25MG/ML VIAL 1ML IV SCH ×2 (01:27→06:27)
[2018-08-10] MEDS: IPRATROPIUM/ALBUTEROL 0.5-3(2.5)MG/3ML NEB HHN SCH ×4 (02:01→21:24)
[2018-08-10] MEDS: BLOOD SUGAR DIAGNOSTIC STRIP TEST SCH ×4 (06:26→21:00)
[2018-08-10 06:40] LABS: HEMOGLOBIN. 9.8 g/dL (14.0-18.0); MEAN CORPUSCULAR HEMOGLOBIN 28.1 pg (28.0-32.0); MEAN CORPUSCULAR VOLUME 82.6 fL (80.0-94.0); MEAN PLATELET VOLUME 8.2 fl (7.4-10.4); PLATELET 139 x1000/uL (130-400); RED BLOOD CELL COUNT 3.51 mill/uL (4.7-6.1); RED CELL DISTRIBUTION WIDTH 17.1 % (11.6-14.6)
[2018-08-10 06:46] LABS: CHLORIDE 94 mEq/L (98-107)
[2018-08-10 08:06] LABS: PHOSPHORUS 8.5 mg/dL (2.5-4.9)
[2018-08-10] MEDS: INSULIN LISPRO 100 UNITS/ML SUBCUT SCH ×4 (08:10→21:00)
[2018-08-10] MEDS ORDERED: HEPARIN SODIUM 1,000 UNIT/1ML VIAL IV ONE (08:24)
[2018-08-10] MEDS: AMLODIPINE 5MG TABLET PO SCH ×2 (09:00→20:47)
[2018-08-10] MEDS: CARVEDILOL 6.25 MG TABLET PO SCH ×2 (10:27→20:47)
[2018-08-10] MEDS: PANTOPRAZOLE SODIUM 40 MG/VIAL IV SCH ×2 (10:27→20:46)
[2018-08-10] MEDS ORDERED: MIDAZOLAM HCL 2 MG/2 ML VIAL ONE (12:35)
[2018-08-10] MEDS ORDERED: FENTANYL CITRATE/PF 50MCG/ML 2ML VIAL ONE (12:35)
[2018-08-10] MEDS ORDERED: IODIXANOL 320MG/ML 100 ML BOTTLE IV ONE (12:36)
[2018-08-10] MEDS ORDERED: ASPIRIN/SOD BICARB/CITRIC ACID 324MG TAB EFF ONE (12:36)
[2018-08-10] MEDS ORDERED: LIDOCAINE HCL 1% 20ML VIAL (Pyxis) INJ ONE (12:36)
[2018-08-10] MEDS ORDERED: CALCIUM ACETATE 667MG CAPSULE PO SCH (13:10)
[2018-08-10] MEDS: SEVELAMER CARBONATE 800 MG TABLET PO SCH ×2 (13:10→17:11)
[2018-08-10] MEDS ORDERED: ATROPINE SULFATE 1MG/10ML SYR IV PRN (13:30)
[2018-08-10] MEDS ORDERED: ONDANSETRON HCL 4MG/2ML INJ IV PRN (13:30)
[2018-08-10] MEDS ORDERED: ACETAMINOPHEN 325MG TABLET PO PRN (13:30)
[2018-08-10] MEDS ORDERED: MORPHINE SULFATE 2 MG/ML CPJ (NOT FOR IM USE) IV PRN (13:30)
[2018-08-10] MEDS: CEFEPIME 500 MG in DEXTROSE 5% WATER 50 ML IV SCH (14:00)
[2018-08-10] MEDS ORDERED: HEPARIN SODIUM 1,000 UNIT/1ML VIAL IV NR (15:15)
[2018-08-10 16:12] LABS: PLATELET ESTIMATE NORMAL
[2018-08-10] MEDS ORDERED: CEFEPIME 500 MG in DEXTROSE 5% WATER 50 ML IV NR (20:00)
[2018-08-10] MEDS: CLONIDINE 0.1MG TABLET PO SCH (20:46)
[2018-08-11] VITALS (12 sets, daily range): BP systolic 95–143; BP diastolic 56–97
[2018-08-11] MEDS: IPRATROPIUM/ALBUTEROL 0.5-3(2.5)MG/3ML NEB HHN SCH ×4 (01:50→21:52)
[2018-08-11] MEDS: BLOOD SUGAR DIAGNOSTIC STRIP TEST SCH (06:50)
[2018-08-11] MEDS: INSULIN LISPRO 100 UNITS/ML SUBCUT SCH (06:52)
[2018-08-11 07:20] LABS: BASOPHILS % 0.6 % (0.0-2.0); EOSINOPHILS % 0.8 % (0.0-5.0); HEMATOCRIT. 31.8 % (42.0-52.0); HEMOGLOBIN. 10.3 g/dL (14.0-18.0); LYMPHOCYTES % 8.2 % (20.0-50.0); MEAN CORPUSCULAR HEMOGLOBIN 27.2 pg (28.0-32.0); MEAN CORPUSCULAR VOLUME 83.4 fL (80.0-94.0); MEAN PLATELET VOLUME 8.3 fl (7.4-10.4); MONOCYTES % 11.9 % (2.0-8.0); NEUTROPHILS % 78.5 % (40.0-76.0); PLATELET 186 x1000/uL (130-400); RED BLOOD CELL COUNT 3.81 mill/uL (4.7-6.1); RED CELL DISTRIBUTION WIDTH 17.6 % (11.6-14.6)
[2018-08-11] MEDS: PANTOPRAZOLE SODIUM 40 MG/VIAL IV SCH ×2 (08:04→21:25)
[2018-08-11] MEDS: CLONIDINE 0.1MG TABLET PO SCH (08:04)
[2018-08-11] MEDS: CARVEDILOL 6.25 MG TABLET PO SCH ×2 (08:05→21:25)
[2018-08-11] MEDS: AMLODIPINE 5MG TABLET PO SCH (08:05)
[2018-08-11] MEDS: SEVELAMER CARBONATE 800 MG TABLET PO SCH ×3 (08:05→17:30)
[2018-08-11] MEDS: LOSARTAN POTASSIUM 25 MG TABLET PO SCH (09:15)
[2018-08-11] MEDS: AMLODIPINE 2.5MG TABLET PO SCH (21:25)
[2018-08-12] VITALS (9 sets, daily range): BP systolic 99–147; BP diastolic 43–98
[2018-08-12] MEDS: IPRATROPIUM/ALBUTEROL 0.5-3(2.5)MG/3ML NEB HHN SCH ×2 (02:32→07:43)
[2018-08-12 08:05] LABS: BASOPHILS % 0.6 % (0.0-2.0); HEMATOCRIT. 31.3 % (42.0-52.0); HEMOGLOBIN. 10.3 g/dL (14.0-18.0); LYMPHOCYTES % 10.5 % (20.0-50.0); MEAN CORPUSCULAR HEMOGLOBIN 27.3 pg (28.0-32.0); MEAN CORPUSCULAR VOLUME 82.9 fL (80.0-94.0); MEAN PLATELET VOLUME 8.3 fl (7.4-10.4); MONOCYTES % 13.6 % (2.0-8.0); NEUTROPHILS % 74.3 % (40.0-76.0); PLATELET 232 x1000/uL (130-400); RED BLOOD CELL COUNT 3.78 mill/uL (4.7-6.1); RED CELL DISTRIBUTION WIDTH 17.6 % (11.6-14.6)
[2018-08-12] MEDS: PANTOPRAZOLE SODIUM 40 MG/VIAL IV SCH (08:30)
[2018-08-12] MEDS: SEVELAMER CARBONATE 800 MG TABLET PO SCH ×2 (08:30→13:27)
[2018-08-12] MEDS: CARVEDILOL 6.25 MG TABLET PO SCH (08:36)
[2018-08-12] MEDS: LOSARTAN POTASSIUM 25 MG TABLET PO SCH (08:36)
[2018-08-12] MEDS: AMLODIPINE 2.5MG TABLET PO SCH (08:37)
[2018-08-12 08:41] LABS: PHOSPHORUS 7.6 mg/dL (2.5-4.9)
[2018-08-12] MEDS ORDERED: HEPARIN SODIUM 1,000 UNIT/1ML VIAL IV NR (09:45)
[2018-08-14] MEDS ORDERED: CLONIDINE HCL 0.3MG/24HR PATCH TD SCH (09:00)
[2018-08-14] MEDS ORDERED: CLONIDINE HCL 0.3MG/24HR PATCH TOP SCH (09:00)
== END 2018-08-12 14:22 | disposition home or self-care (01) | DRG 720 ==
LOC: ER 08:31 → EDBEDREQ 10:11 → 3WST 10:50 → EDBEDREQ 10:56 → EDBEDREQSVC 10:56 → ENRESERV 11:44 → MICUSO 19:19 → 7WST 08-09 22:00 → 3WST 08-10 13:53
PROVIDERS: ADMIT Internal Medicine; ATTEND Internal Medicine
PROC: 5A1945Z Respiratory Ventilation, 24-96 Consecutive Hours (ICD-10-PCS; principal; 2018-07-31)
PROC: 0BH17EZ Insertion of Endotracheal Airway into Trachea, Via Natural or Artificial Opening (ICD-10-PCS; 2018-07-31)
PROC: 5A12012 Performance of Cardiac Output, Single, Manual (ICD-10-PCS; 2018-07-31)
PROC: 5A1D70Z Performance of Urinary Filtration, Intermittent, Less than 6 Hours Per Day (ICD-10-PCS; 2018-07-31)
PROC: 02HV33Z Insertion of Infusion Device into Superior Vena Cava, Percutaneous Approach (ICD-10-PCS; 2018-08-01)
PROC: B548ZZA Ultrasonography of Superior Vena Cava, Guidance (ICD-10-PCS; 2018-08-01)
PROC: 5A1D70Z Performance of Urinary Filtration, Intermittent, Less than 6 Hours Per Day (ICD-10-PCS; 2018-08-01)
PROC: 30233N1 Transfusion of Nonautologous Red Blood Cells into Peripheral Vein, Percutaneous Approach (ICD-10-PCS; 2018-08-01)
PROC: 5A1D70Z Performance of Urinary Filtration, Intermittent, Less than 6 Hours Per Day (ICD-10-PCS; 2018-08-02)
PROC: 5A1D70Z Performance of Urinary Filtration, Intermittent, Less than 6 Hours Per Day (ICD-10-PCS; 2018-08-06)
PROC: 5A1D70Z Performance of Urinary Filtration, Intermittent, Less than 6 Hours Per Day (ICD-10-PCS; 2018-08-07)
PROC: B2151ZZ Fluoroscopy of Left Heart using Low Osmolar Contrast (ICD-10-PCS; 2018-08-10)
PROC: 4A023N7 Measurement of Cardiac Sampling and Pressure, Left Heart, Percutaneous Approach (ICD-10-PCS; 2018-08-10)
PROC: B2111ZZ Fluoroscopy of Multiple Coronary Arteries using Low Osmolar Contrast (ICD-10-PCS; 2018-08-10)
PROC: 5A1D70Z Performance of Urinary Filtration, Intermittent, Less than 6 Hours Per Day (ICD-10-PCS; 2018-08-12)
DX: A41.9 Sepsis, unspecified organism (principal); I21.4 Non-ST elevation (NSTEMI) myocardial infarction; J96.00 Acute respiratory failure, unspecified whether with hypoxia or hypercapnia; I46.2 Cardiac arrest due to underlying cardiac condition; J69.0 Pneumonitis due to inhalation of food and vomit; G93.40 Encephalopathy, unspecified; K72.00 Acute and subacute hepatic failure without coma; K92.2 Gastrointestinal hemorrhage, unspecified; E87.2 Acidosis; I12.0 Hypertensive chronic kidney disease with stage 5 chronic kidney disease or end stage renal disease; N18.6 End stage renal disease; D68.9 Coagulation defect, unspecified; E87.1 Hypo-osmolality and hyponatremia; E87.5 Hyperkalemia; D62 Acute posthemorrhagic anemia; D50.9 Iron deficiency anemia, unspecified; D63.8 Anemia in other chronic diseases classified elsewhere; D69.6 Thrombocytopenia, unspecified; E11.22 Type 2 diabetes mellitus with diabetic chronic kidney disease; E78.5 Hyperlipidemia, unspecified; F10.10 Alcohol abuse, uncomplicated; I27.20 Pulmonary hypertension, unspecified; I42.9 Cardiomyopathy, unspecified; K80.20 Calculus of gallbladder without cholecystitis without obstruction; M62.82 Rhabdomyolysis; H05.221 Edema of right orbit; N32.89 Other specified disorders of bladder; R18.8 Other ascites; N25.81 Secondary hyperparathyroidism of renal origin; S00.83XA Contusion of other part of head, initial encounter; W18.39XA Other fall on same level, initial encounter; Y93.89 Activity, other specified; Y92.89 Other specified places as the place of occurrence of the external cause; Y99.8 Other external cause status; Z79.4 Long term (current) use of insulin; Z79.899 Other long term (current) drug therapy; I25.2 Old myocardial infarction; Z82.49 Family history of ischemic heart disease and other diseases of the circulatory system; Z83.3 Family history of diabetes mellitus; Z91.14 Patient's other noncompliance with medication regimen; Z91.15 Patient's noncompliance with renal dialysis; Z91.19 Patient's noncompliance with other medical treatment and regimen; Z99.2 Dependence on renal dialysis
CPT/HCPCS: 31500; 36415; 36569; 36600; 70486; 71045; 71275; 74177; 76700; 76937; 80048; 80061; 80076; 80202; 80305; 82140; 82150; 82248; 82375; 82550; 82553; 82805; 82962; 83036; 83540; 83550; 83605; 83615; 83735; 84100; 84145; 84478; 84484; 85014; 85018; 85027; 85379; 86705; 86709; 86803; 86850; 86900; 86920; 87070; 87340; 87389; 93005; 93306; 93458; 93880; 93970; 94002; 94003; 94640; 96374; 96375; 99291; C1725; C1760; C1769; C1893; C9113; J0360; J0692; J0885; J1644; J1650; J1815; J2060; J2250; J2405; J2543; J2704; J3010; J3370; J3490; J7040; J7042; J7050; J7060; J7611; J7620; P9016; Q9967

== ENCOUNTER 2021-01-04 11:14 | Emergency (ER) | payer MEDICARE, MEDICAID ==
[~2021-01-04] VITALS: Ht 193 cm; Wt 82.0 kg
[2021-01-04] MEDS ORDERED: ONDANSETRON HCL 4MG/2ML INJ IV STA (11:36)
[2021-01-04] MEDS ORDERED: MAGNESIUM/ALUMINUM HYDROXIDE/SIMETHICONE 30ML UDC PO STA (11:36)
[2021-01-04] MEDS ORDERED: VISCOUS LIDOCAINE 2% 15 ML UDC PO STA (11:36)
[2021-01-04] MEDS ORDERED: ACETAMINOPHEN 325MG TABLET PO STA (11:36)
[2021-01-04] MEDS ORDERED: SODIUM CHLORIDE 0.9% 1,000 ML IV ONE (12:30)
[2021-01-04 12:32] LABS: BASOPHILS % 0.5 % (0.0-2.0); HEMATOCRIT. 39.3 % (42.0-52.0); HEMOGLOBIN. 12.8 g/dL (14.0-18.0); LYMPHOCYTES % 13.1 % (20.0-50.0); MEAN CORPUSCULAR HEMOGLOBIN 27.2 pg (28.0-32.0); MEAN CORPUSCULAR VOLUME 83.6 fL (80.0-94.0); MEAN PLATELET VOLUME 6.9 fl (7.4-10.4); MONOCYTES % 9.5 % (2.0-8.0); NEUTROPHILS % 76.9 % (40.0-76.0); PLATELET 250 x1000/uL (130-400); RED CELL DISTRIBUTION WIDTH 18.4 % (11.6-14.6)
[2021-01-04 12:40] LABS: CHLORIDE 87 mEq/L (98-107)
[2021-01-04 12:44] LABS: ETHANOL BLOOD < 10 mg/dL
[2021-01-04] MEDS ORDERED: PROT20 MT (14:21)
[2021-01-04] MEDS ORDERED: ONDA4TAB5 MT (14:21)
[2021-01-04] MEDS ORDERED: SUCR1TAB30 MT (14:21)
[2021-01-04 14:30] VITALS: BP 155/78
== END 2021-01-04 14:30 | disposition home or self-care (01) ==
LOC: ER 11:30
DX: K29.70 Gastritis, unspecified, without bleeding (principal); R10.13 Epigastric pain; I10 Essential (primary) hypertension; Z99.2 Dependence on renal dialysis
CPT/HCPCS: 36415; 71045; 76700; 80053; 80320; 83690; 83880; 85025; 93005; 96361; 96374; 99285; J2405; G0480

== ENCOUNTER 2021-06-29 12:22 | Inpatient (IN) | payer MEDICARE, MEDICAID ==
[~2021-06-29] VITALS: Ht 193 cm; Wt 72.5 kg
[~2021-06-29 12:22] MED LIST: AMLO5TAB88 PO; ASPI-1406 PO; CARV3.1242 PO; CLOP75TA33 PO; FERR325T6 PO; LOSA50TA41 PO; ONDA4TAB5 MT; PROT40 PO; SENN-257 PO; SUCR1TAB30 MT
[2021-06-29] MEDS ORDERED: ONDANSETRON HCL 4MG/2ML INJ IV STA (15:07)
[2021-06-29] MEDS ORDERED: SODIUM CHLORIDE 0.9% 1,000 ML IV ONE (15:15)
[2021-06-29] MEDS ORDERED: PANTOPRAZOLE SODIUM 40 MG/VIAL IV ONE (15:30)
[2021-06-29 15:55] LABS: HEMATOCRIT. 32.6 % (42.0-52.0); MEAN CORPUSCULAR HEMOGLOBIN 29.1 pg (28.0-32.0); MEAN CORPUSCULAR VOLUME 86.3 fL (80.0-94.0); MEAN PLATELET VOLUME 7.5 fl (7.4-10.4); PLATELET 250 x1000/uL (130-400); RED BLOOD CELL COUNT 3.78 mill/uL (4.7-6.1); RED CELL DISTRIBUTION WIDTH 17.2 % (11.6-14.6)
[2021-06-29 16:03] LABS: CHLORIDE 89 mEq/L (98-107)
[2021-06-29 16:05] LABS: INR 1.1; PARTIAL THROMBOPLASTIN TIME 33.5 sec (23.4-31.0); PROTHROMBIN TIME 11.7 sec (9.6-11.0)
[2021-06-29 16:17] LABS: TOTAL IRON BINDING CAPACITY 223 ug/dL (250-450)
[2021-06-29 17:08] LABS: BG BASE EXCESS 8.1 mmol/L (-2.0-2.0); BG CARBOXYHEMOGLOBIN 0.2 % (0.5-1.5); BG DEOXYHEMOGLOBIN 3.1 % (0.0-5.0); BG FRACTION INSPIRED OXYGEN 21; BG METHEMOGLOBIN 0.3 % (0.0-1.5); BG OXYGEN SATURATION 96.9 % (92.0-98.5); BG OXYHEMOGLOBIN 96.4 % (94.0-97.0); BG PCO2 41.8 mmHg (35.0-45.0); BG PH 7.502 (7.350-7.450); BG PO2 89.5 mmHg (75.0-100.0); BG SAMPLE SITE RIGHT RADIAL; BG TOTAL HEMOGLOBIN 11.7 g/dL (12.0-18.0); BG VENT MODE ROOM AIR
[2021-06-29 17:23] LABS: PLATELET ESTIMATE NORMAL
[2021-06-29] MEDS ORDERED: PANTOPRAZOLE SODIUM 40 MG/VIAL IV NR (18:58)
[2021-06-29] MEDS ORDERED: MAGNESIUM/ALUMINUM HYDROXIDE/SIMETHICONE 30ML UDC PO PRN (20:30)
[2021-06-29] MEDS ORDERED: NITROGLYCERIN 0.4MG TABLET SL SL PRN (20:30)
[2021-06-29] MEDS ORDERED: TRAMADOL 50MG TABLET PO PRN (20:30)
[2021-06-29] MEDS ORDERED: ONDANSETRON HCL 4MG/2ML INJ IV PRN (20:30)
[2021-06-29] MEDS ORDERED: DIPHENHYDRAMINE 50MG/ML VIAL IV PRN (20:30)
[2021-06-29] MEDS ORDERED: DOCUSATE SODIUM 100MG CAPSULE PO PRN (20:30)
[2021-06-29] MEDS ORDERED: IPRATROPIUM/ALBUTEROL 0.5-3(2.5)MG/3ML NEB NEB PRN (20:30)
[2021-06-29] MEDS ORDERED: ZOLPIDEM TARTRATE 5MG TABLET PO PRN (20:30)
[2021-06-29] MEDS ORDERED: CLONIDINE 0.1MG TABLET PO PRN (20:30)
[2021-06-29] MEDS ORDERED: GUAIFENESIN 200MG/10ML SUGAR FREE UDC PO PRN (20:30)
[2021-06-29] MEDS ORDERED: ACETAMINOPHEN 325MG TABLET PO PRN ×2 (20:30)
[2021-06-29] MEDS ORDERED: PANTOPRAZOLE SODIUM 40 MG/VIAL IV SCH (21:00)
[2021-06-30] VITALS: BP_SYST 108; BP_SYST 118; BP_DIAS 71; BP_DIAS 87
[2021-06-30 04:00] VITALS: BP 114/74
[2021-06-30 06:35] LABS: CHLORIDE 91 mEq/L (98-107)
[2021-06-30] MEDS: CARVEDILOL 3.125 MG TABLET PO SCH ×2 (06:53→17:53)
[2021-06-30 07:37] LABS: HEMATOCRIT. 30.2 % (42.0-52.0); MEAN CORPUSCULAR HEMOGLOBIN 28.3 pg (28.0-32.0); MEAN CORPUSCULAR VOLUME 85.7 fL (80.0-94.0); MEAN PLATELET VOLUME 7.8 fl (7.4-10.4); PLATELET 229 x1000/uL (130-400); RED BLOOD CELL COUNT 3.52 mill/uL (4.7-6.1); RED CELL DISTRIBUTION WIDTH 17.5 % (11.6-14.6)
[2021-06-30 08:00] VITALS: BP 117/84
[2021-06-30] MEDS: PANTOPRAZOLE SODIUM 40 MG/VIAL IV SCH ×2 (08:20→21:59)
[2021-06-30 10:39] LABS: PLATELET ESTIMATE NORMAL
[2021-06-30 12:00] VITALS: BP 120/79
[2021-06-30 13:32] LABS: HEPATITIS B SURFACE ANTIGEN NEGATIVE
[2021-06-30 16:00] VITALS: BP 114/87
[2021-06-30 16:39] LABS: FOLIC ACID (FOLATE) SERUM 3.9 ng/mL (>5.38)
[2021-06-30] MEDS ORDERED: NALOXONE HCL 0.4MG/ML VIAL IV PRN (18:15)
[2021-06-30 20:00] VITALS: BP 96/72
[2021-07-01] VITALS: BP 105/75
[2021-07-01 04:00] VITALS: BP 131/89
[2021-07-01] MEDS: CARVEDILOL 3.125 MG TABLET PO SCH ×2 (06:06→17:22)
[2021-07-01 07:44] LABS: BASOPHILS % 0.3 % (0.0-2.0); EOSINOPHILS % 0.2 % (0.0-5.0); HEMOGLOBIN. 9.5 g/dL (14.0-18.0); LYMPHOCYTES % 9.6 % (20.0-50.0); MEAN CORPUSCULAR HEMOGLOBIN 28.7 pg (28.0-32.0); MEAN CORPUSCULAR VOLUME 84.6 fL (80.0-94.0); MEAN PLATELET VOLUME 7.6 fl (7.4-10.4); MONOCYTES % 8.3 % (2.0-8.0); NEUTROPHILS % 81.6 % (40.0-76.0); PLATELET 218 x1000/uL (130-400); RED CELL DISTRIBUTION WIDTH 17.3 % (11.6-14.6)
[2021-07-01 08:00] VITALS: BP 117/88
[2021-07-01] MEDS: PANTOPRAZOLE SODIUM 40 MG/VIAL IV SCH ×2 (08:18→20:50)
[2021-07-01 11:34] VITALS: BP 105/69
[2021-07-01] MEDS ORDERED: SENNOSIDES 8.6MG TABLET PO PRN (12:30)
[2021-07-01] MEDS ORDERED: POLYETHYLENE GLYCOL 3350 (17GM) 1 DOSE PACK PO NR (12:30)
[2021-07-01] MEDS: DOCUSATE SODIUM 250MG CAPSULE PO SCH (13:51)
[2021-07-01 16:00] VITALS: BP 112/83
[2021-07-01 20:00] VITALS: BP 113/90
[2021-07-02] VITALS: BP 111/67
[2021-07-02 04:00] VITALS: BP 109/70
[2021-07-02] MEDS: CARVEDILOL 3.125 MG TABLET PO SCH (06:00)
[2021-07-02 06:37] LABS: BASOPHILS % 0.5 % (0.0-2.0); EOSINOPHILS % 0.4 % (0.0-5.0); HEMATOCRIT. 26.3 % (42.0-52.0); LYMPHOCYTES % 15.6 % (20.0-50.0); MEAN CORPUSCULAR HEMOGLOBIN 28.7 pg (28.0-32.0); MEAN CORPUSCULAR VOLUME 83.6 fL (80.0-94.0); MEAN PLATELET VOLUME 7.5 fl (7.4-10.4); MONOCYTES % 8.8 % (2.0-8.0); NEUTROPHILS % 74.7 % (40.0-76.0); PLATELET 230 x1000/uL (130-400); RED BLOOD CELL COUNT 3.14 mill/uL (4.7-6.1); RED CELL DISTRIBUTION WIDTH 17.2 % (11.6-14.6)
[2021-07-02 08:00] VITALS: BP 112/81
[2021-07-02] MEDS: DOCUSATE SODIUM 250MG CAPSULE PO SCH (08:39)
[2021-07-02] MEDS: PANTOPRAZOLE SODIUM 40 MG/VIAL IV SCH (08:39)
[2021-07-02] MEDS ORDERED: BISACODYL 5MG TABLET PO NR (09:45)
[2021-07-02] MEDS ORDERED: LACTULOSE 20G/30ML UDC PO NR (09:45)
[2021-07-02] MEDS ORDERED: SUCR1TAB30 MT (10:12)
[2021-07-02] MEDS ORDERED: PROT40 PO (10:12)
[2021-07-02 11:50] VITALS: BP 113/75
[2021-07-02 12:37] VITALS: BP 113/75
== END 2021-07-02 16:25 | disposition home or self-care (01) | DRG 377 ==
LOC: ER 12:22 → 7EST 19:56 → EDBEDREQ 20:03 → EDBEDREQTM 20:03 → ENRESERV 20:41 → 7EST 22:48
PROVIDERS: ADMIT Internal Medicine; ATTEND Internal Medicine
PROC: 5A1D70Z Performance of Urinary Filtration, Intermittent, Less than 6 Hours Per Day (ICD-10-PCS; principal; 2021-06-30)
PROC: 5A1D70Z Performance of Urinary Filtration, Intermittent, Less than 6 Hours Per Day (ICD-10-PCS; 2021-07-02)
DX: K92.2 Gastrointestinal hemorrhage, unspecified (principal); E43 Unspecified severe protein-calorie malnutrition; N18.6 End stage renal disease; E87.1 Hypo-osmolality and hyponatremia; I13.2 Hypertensive heart and chronic kidney disease with heart failure and with stage 5 chronic kidney disease, or end stage renal disease; I50.30 Unspecified diastolic (congestive) heart failure; Z68.1 Body mass index [BMI] 19.9 or less, adult; M71.22 Synovial cyst of popliteal space [Baker], left knee; D64.9 Anemia, unspecified; M71.21 Synovial cyst of popliteal space [Baker], right knee; E87.6 Hypokalemia; T45.4X5A Adverse effect of iron and its compounds, initial encounter; Y92.89 Other specified places as the place of occurrence of the external cause; Z82.49 Family history of ischemic heart disease and other diseases of the circulatory system; Z99.2 Dependence on renal dialysis; Z79.899 Other long term (current) drug therapy; Z87.891 Personal history of nicotine dependence; Z87.19 Personal history of other diseases of the digestive system; Z79.02 Long term (current) use of antithrombotics/antiplatelets; Z79.82 Long term (current) use of aspirin
CPT/HCPCS: 36415; 36600; 71045; 80048; 80053; 80320; 82375; 82607; 82728; 82746; 82805; 83540; 83550; 83735; 83880; 84100; 84484; 85025; 85044; 86705; 86709; 86803; 86850; 86900; 87340; 93005; 93970; 99291; C9113; J7030; G0480